=== PATIENT | female | born 1950 | race African-American/Black ===

== ENCOUNTER → 2019-10-07 | Day surgery (SDC) | payer MEDICARE, OTHER ==
[2019-10-02 12:25] LABS: BASOPHILS % 0.2 % (0.0-1.0); EOSINOPHILS # (AUTO) 0.1 (0.0-0.4); EOSINOPHILS % 0.5 % (0.0-6.0); HEMATOCRIT 35.2 % (34.2-44.1); HEMOGLOBIN 11.2 g/dL (12.0-16.0); LYMPHOCYTES # (AUTO) 1.8 (1.0-3.2); LYMPHOCYTES % 17.5 % (18.0-39.1); MEAN CORPUSCULAR HEMOGLOBIN 27.6 pg (28-32); MEAN CORPUSCULAR HGB CONC 31.8 g/dL (31-35); MEAN CORPUSCULAR VOLUME 86.7 fL (81-99); MONOCYTES # (AUTO) 0.9 (0.2-0.8); MONOCYTES % 8.4 % (4.4-11.3); NEUTROPHILS # (AUTO) 7.5 (2.1-6.9); NEUTROPHILS % 72.7 % (38.7-80.0); PLATELET COUNT 318 x10e3/uL (140-360); RED BLOOD COUNT 4.06 x10e6/uL (3.6-5.1); RED CELL DISTRIBUTION WIDTH 12.8 % (11.7-14.4)
[2019-10-02 12:37] LABS: INR 0.98; PARTIAL THROMBOPLASTIN TIME 22.3 seconds (23.8-35.5); PROTHROMBIN TIME 13.6 seconds (11.9-14.5)
[2019-10-02 12:42] LABS: ALANINE AMINOTRANSFERASE 21 IU/L (0-55); ALBUMIN 3.7 g/dL (3.5-5.0); ALBUMIN/GLOBULIN RATIO 1.1 (0.8-2.0); ALKALINE PHOSPHATASE 50 IU/L (40-150); ANION GAP 12.5 mmol/L (8-16); BLOOD UREA NITROGEN 16 mg/dL (7-26); BUN/CREATININE RATIO 22 (6-25); CALCIUM 9.3 mg/dL (8.4-10.2); CARBON DIOXIDE 25 mmol/L (22-29); CHLORIDE 108 mmol/L (98-107); CHOL/HDL RATIO 1.9 (3.0-3.6); CHOLESTEROL 147 MD/DL (0-199); CREATININE, SERUM 0.72 mg/dL (0.57-1.11); EST GLOMERULAR FILTRATION RATE > 60 ML/MIN (60-); GLUCOSE 98 mg/dL (74-118); HDL CHOLESTEROL 79 MG/DL (40-60); LDL CHOLESTEROL 53 MG/DL (60-130); POTASSIUM 3.5 mmol/L (3.5-5.1); SODIUM 142 mmol/L (136-145); TRIGLYCERIDES 76 MG/DL (0-149)
[2019-10-07] VITALS (9 sets, daily range): BP systolic 108–181; BP diastolic 73–99
[~2019-10-07] MED LIST: ADVAIR 100-501 EACH; ASPIRIN 81 MG CHEW TAB ONE; ASPIRIN81 MG; ATORVASTATIN CA20 MG PO; FENTANYL CITRATE/PF 100MCG/2 ML INJ ONE; HEPARIN SOD (PORCINE) 1000 UNIT/ML 30ML ONE; HEPARIN SOD/SOD CHLORIDE 2,000 ML ONE; HYDROCHLOROTHIA25 MG; HYDROXYZINE HCL25 MG PO; IOPAMIDOL 370 MG/ML 200 ML INFUS..BTL INJ ONE; LIDOCAINE HCL 2% LOCAL 20 ML VIAL ONE; LISINOPRIL10 MG PO; METOPROLOL SUCC50 MG PO; MIDAZOLAM HCL 2 MG/2 ML VIAL ONE; NITROGLYCERIN/D5W 200 MCG/ML 250 ML ONE; PAROXETINE HCL20 MG PO; PREVACID15 M1; PROAIR HFA INH8.5 GM; SODIUM CHLORIDE 0.9% 1000ML 1,000 ML ONE; SPIRIVA18 MCG INH; VERAPAMIL HCL 2.5 MG/ML 2 ML VIAL ONE; ZANAFLEX2 M1; ZYRTEC10 MG
--- NOTE | 2019-10-07 08:21 | NUR ---
ASA 81mg x2 given - pt took 162mg ASA this am before arrival. NS 500ml bolus infusing, pt tolerating well.
--- NOTE | 2019-10-07 14:30 | Operative Report ---
DATE OF PROCEDURE: 10/07/2019 SURGEON: Kunal Renee MD PROCEDURE PERFORMED: 1. Left heart catheterization. 2. Selective coronary angiography. 3. TR band hemostasis. 4. Monitor sedation. PROCEDURE COMPLICATIONS: None. ESTIMATED BLOOD LOSS: Less than 15 mL. PROCEDURE SUMMARY: After consent was obtained, the patient was prepped and draped in a sterile fashion. The right radial site was locally infiltrated with 2% lidocaine and with a single anterior stick access was obtained after local administration of 2% lidocaine and moderate sedation with fentanyl and Versed interventional catheter for engagement of left main, right coronary artery and to cross the aortic valve. A pigtail catheter was used for LV-gram as well as an aortography. The following findings were observed. 1. LV-gram reviewed preserved left ventricular systolic function, normal regional wall motion, left ventricular ejection fraction of 65-70%. LV pressure is 120/11 with end-diastolic pressure of 17. 2. Aortic pressure is 120/69. 3. Left main is large in caliber with distal 70% stenosis, mild calcifications, gives an LAD and circumflex. 4. The LAD proximally has 70% prior to diagonal after which 60% mid LAD stenosis. The distal LAD has 70% focal area of stenosis and continues as a medium caliber vessel at the apical segment of LAD where it wraps around. There is an additional focal 70% stenosis. 5. Circumflex is a large in caliber, gives a 1st obtuse marginal of small to medium caliber with luminal irregularities, gives 3 additional obtuse marginal. After the 2nd obtuse marginal and the left atrial branch, there is a focal area of 60% to 70% stenosis, at this point is 1.5 mm in caliber. 6. The right coronary artery is dominant proximally with 70% stenosis, gives an RV marginal that has areas of 70% stenosis. The mid RCA has 70% and 80% tandem lesions and distal RCA has 50% focal stenosis. It gives a terminal RPDA and RPLV. 7. Type 3 aortic arch. No significant carotid disease noted bilaterally. The vertebral arteries in the extracranial portions. HUERTA is patent without significant stenosis of the left subclavian artery in the proximal visualized segments. CONCLUSIONS: Severe multivessel coronary artery disease with severe left main, LAD, RCA and circumflex disease. RECOMMEND: Evaluation by CV surgery for aortic coronary bypass and continue to optimize medical therapy. MD NINFA Orellana/MODL /[id number]
== END | disposition home or self-care (01) ==
LOC: CATH LAB 07:50
PROVIDERS: ATTEND Internal Medicine Cardiovascular Disease
DX: I25.10 Atherosclerotic heart disease of native coronary artery without angina pectoris (principal); I10 Essential (primary) hypertension; E78.5 Hyperlipidemia, unspecified; M06.9 Rheumatoid arthritis, unspecified; I70.219 Atherosclerosis of native arteries of extremities with intermittent claudication, unspecified extremity; F17.210 Nicotine dependence, cigarettes, uncomplicated; Z88.6 Allergy status to analgesic agent; Z88.2 Allergy status to sulfonamides; Z01.810 Encounter for preprocedural cardiovascular examination; Z01.812 Encounter for preprocedural laboratory examination; Z11.59 Encounter for screening for other viral diseases; Z79.82 Long term (current) use of aspirin; Z85.3 Personal history of malignant neoplasm of breast; Z82.49 Family history of ischemic heart disease and other diseases of the circulatory system; Z82.3 Family history of stroke
CPT/HCPCS: 36221; 36415; 80053; 80061; 85025; 85610; 85730; 93005; 93458; C1769; C1887; J1644; J2001; J2250; J3010; J7030; Q9967; U0002; 36200; 99152